=== PATIENT | male | born 1985 | race Caucasian/White ===

== ENCOUNTER 2018-07-07 04:18 | Emergency (ER) | payer MEDICAID ==
[~2018-07-07] VITALS: Ht 170.2 cm; Wt 104.0 kg
[2018-07-07] MEDS ORDERED: KETOROLAC 30MG/ML VIAL IV STA (05:00)
[2018-07-07] MEDS ORDERED: FAMOTIDINE 20MG/2ML VIAL IV STA (05:00)
[2018-07-07] MEDS ORDERED: METOCLOPRAMIDE HCL 10MG/2ML VIAL IV STA (05:00)
[2018-07-07 05:37] LABS: BASOPHILS % 0.5 % (0.0-2.0); EOSINOPHILS % 3.6 % (0.0-5.0); HEMATOCRIT. 46.9 % (42.0-52.0); HEMOGLOBIN. 16.1 g/dL (14.0-18.0); LYMPHOCYTES % 20.1 % (20.0-50.0); MEAN CORPUSCULAR HEMOGLOBIN 30.6 pg (28.0-32.0); MEAN CORPUSCULAR VOLUME 88.9 fL (80.0-94.0); MEAN PLATELET VOLUME 8.6 fl (7.4-10.4); MONOCYTES % 3.9 % (2.0-8.0); NEUTROPHILS % 71.9 % (40.0-76.0); PLATELET 221 x1000/uL (130-400); RED BLOOD CELL COUNT 5.27 mill/uL (4.7-6.1); RED CELL DISTRIBUTION WIDTH 13.2 % (11.6-14.6)
[2018-07-07 05:44] LABS: CHLORIDE 103 mEq/L (98-107)
[2018-07-07 06:53] VITALS: BP 123/77
== END 2018-07-07 07:02 | disposition home or self-care (01) ==
LOC: ER 04:18
DX: K80.20 Calculus of gallbladder without cholecystitis without obstruction (principal); R03.0 Elevated blood-pressure reading, without diagnosis of hypertension
CPT/HCPCS: 36415; 76705; 80053; 83690; 85025; 96374; 96375; 99285; J1885; J2765; J3490

== ENCOUNTER 2019-04-12 07:01 | Emergency (ER) | payer MEDICAID ==
[~2019-04-12] VITALS: Ht 170.2 cm; Wt 104.0 kg
[2019-04-12 07:13] VITALS: BP 156/93
== END 2019-04-12 11:10 | disposition home or self-care (01) ==
LOC: ER 07:01
DX: J06.9 Acute upper respiratory infection, unspecified (principal); J02.9 Acute pharyngitis, unspecified; H74.8X2 Other specified disorders of left middle ear and mastoid
CPT/HCPCS: 99283

== ENCOUNTER 2019-05-07 09:37 | Emergency (ER) | payer MEDICAID ==
[~2019-05-07] VITALS: Ht 182.9 cm; Wt 100.0 kg
[2019-05-07] MEDS ORDERED: ONDANSETRON HCL 4MG/2ML INJ IV STA (09:52)
[2019-05-07] MEDS ORDERED: MORPHINE SULFATE 4 MG/ML CPJ (NOT FOR IM USE) IV STA (09:52)
[2019-05-07] MEDS ORDERED: SODIUM CHLORIDE 0.9% 1,000 ML IV ONE (09:52)
[2019-05-07] MEDS ORDERED: TETANUS, DIPHTHERIA, PERTUSSIS VAC/PF 0.5ML (>7YR OLD) IM ONE (10:00)
[2019-05-07] MEDS ORDERED: CEFAZOLIN 1000MG PREMIX 50 ML IV ONE (10:00)
[2019-05-07] MEDS ORDERED: ACETAMINOPHEN 325MG TABLET PO ONE (10:30)
[2019-05-07] MEDS ORDERED: LIDOCAINE HCL 2%/EPINEPHRINE/PF 10 ML VIAL INFIL ONE (12:00)
[2019-05-07] MEDS ORDERED: LIDOCAINE HCL/EPINEPHRINE 1%-EPI 1:100,000 20 ML VIAL IJ SCH (12:15)
[2019-05-07] MEDS ORDERED: BACITRACIN ZINC OINT UDPKT TOP ONE (12:30)
[2019-05-07 13:50] VITALS: BP 128/82
== END 2019-05-07 13:50 | disposition home or self-care (01) ==
LOC: ER 09:37
DX: S01.81XA Laceration without foreign body of other part of head, initial encounter (principal); S61.412A Laceration without foreign body of left hand, initial encounter; Y08.89XA Assault by other specified means, initial encounter; Y93.89 Activity, other specified; Y92.488 Other paved roadways as the place of occurrence of the external cause
CPT/HCPCS: 12002; 12011; 70450; 70486; 73130; 90471; 90715; 96365; 96375; 99284; J0690; J2270; J2405; J3490; J7030

== ENCOUNTER 2024-05-26 12:58 | Emergency (ER) | payer MEDICAID ==
[~2024-05-26] VITALS: Ht 177.8 cm; Wt 123.0 kg
[2024-05-26 13:24] VITALS: TEMP 98.3; O2SAT 97
[2024-05-26 15:17] VITALS: BP 120/80; PULSE 80; RESP 15; O2SAT 99
== END 2024-05-26 15:18 | disposition home or self-care (01) ==
LOC: ER 12:58
DX: S01.01XD Laceration without foreign body of scalp, subsequent encounter (principal); F10.20 Alcohol dependence, uncomplicated; Z90.49 Acquired absence of other specified parts of digestive tract; W18.39XD Other fall on same level, subsequent encounter
CPT/HCPCS: 99281

== ENCOUNTER 2025-07-15 14:14 | Emergency (ER) | payer OTHER ==
[~2025-07-15] VITALS: Ht 175.3 cm; Wt 109.0 kg
[2025-07-15 14:32] VITALS: O2SAT 97
[2025-07-15 14:51] VITALS: BP 145/91; PULSE 98; RESP 16; TEMP 36.7; O2SAT 99
== END 2025-07-15 17:30 | disposition left against medical advice (07) ==
LOC: ER 14:14
DX: R05.9 Cough, unspecified (principal); R50.9 Fever, unspecified; Z98.890 Other specified postprocedural states
CPT/HCPCS: 99281